=== PATIENT | female | born 1960 | race Caucasian/White ===

== ENCOUNTER 2018-06-21 22:41 | Inpatient (IN) ==
[2018-06-21] MEDS ORDERED: XYLOCAINE 2%/EPI 1:200,000 INJ ONE (23:27)
[2018-06-21] MEDS ORDERED: MARCAINE 0.5% INJ ONE (23:27)
[2018-06-21] MEDS ORDERED: BENADRYL IM ONE (23:33)
[2018-06-21] MEDS ORDERED: COMPAZINE IM ONE (23:33)
[2018-06-21] MEDS ORDERED: MARCAINE 0.5% PF INJ ONE (23:45)
[2018-06-22] MEDS ORDERED: LIDODERM TOP ONE (00:39)
[2018-06-22] MEDS ORDERED: LASIX PO ONE (00:46)
[2018-06-22] MEDS ORDERED: PRINIVIL PO ONE (00:47)
[2018-06-22 01:05] LABS: ALLEN TEST YES; BE 4.1 mmoll (-3.0-3.0); BLOOD TYPE ARTERIAL; METHB 0.7 % (0.0-1.5); O2(CT) 13.4 mL/dL (15.0-23.0); O2HB 91.2 % (95.0-99.0); PCO2(98.6) 33 mmHg (35-45); PO2(98.6) 57 mmHg (60-100); SAMPLE BLOOD; SAO2 94.1 % (95.0-100.0); THB 10.4 g/dL (11.5-17.4); pH(98.6) 7.52 (7.35-7.45)
[2018-06-22 01:06] LABS: MODALITY ROOM AIR
[2018-06-22 02:28] LABS: BASO# 0.01 X1000 (0.0-0.2); BASO% 0.1 % (0.0-0.8); EOS# 0.02 X1000 (0.0-0.7); EOS% 0.3 % (0.0-10.0); HEMATOCRIT 35.3 % (37.0-47.0); HEMOGLOBIN 10.2 g/dL (12.0-16.0); IMM GRAN# 0.02 X1000 (0.0-0.04); IMM GRAN% 0.3 % (0.0-0.5); LYMPH# 1.04 X1000 (1.2-3.4); LYMPH% 13.2 % (20.5-51.1); MCH 23.1 PG (27-31); MCHC 28.9 g/dL (33-37); MCV 79.9 FL (81-99); MONO# 0.42 X1000 (0.11-0.59); MONO% 5.3 % (1.7-9.3); NEUT# 6.35 X1000 (1.4-6.5); NEUT% 80.8 % (42.2-75.2); PLT 334 X1000 (130-400); RBC 4.42 XMIL (4.2-5.4); RDW 21.5 % (11.5-14.5); WBC 7.86 X1000 (4.8-10.8)
[2018-06-22 02:36] LABS: ALB/GLOB RATIO 0.9; ALBUMIN 3.8 g/dL (3.5-5.0); CALCIUM 9.1 mg/dL (8.8-10.2); CREATININE 1.5 mg/dL (0.5-0.9); TOTAL BILIRUBIN 1.31 mg/dL (0.20-1.00); TOTAL PROTEIN 7.8 g/dL (6.3-8.3)
[2018-06-22] MEDS ORDERED: LASIX IV ONE (03:36)
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
[2018-06-22] MEDS ORDERED: DIAMOX IV ONE ×2 (03:52→16:00)
[2018-06-22] MEDS ORDERED: LANOXIN IV ONE (04:03)
[2018-06-22] MEDS ORDERED: LANOXIN ONE (04:06)
[2018-06-22] MEDS ORDERED: COREG PO ONE (04:11)
[2018-06-22] MEDS ORDERED: POTASSIUM CHLORIDE 20% LIQUID PO ONE (04:28)
[2018-06-22] MEDS ORDERED: PHENERGAN PO PRN (05:27)
[2018-06-22] MEDS ORDERED: NORCO-10 PO PRN ×2 (05:27→20:48)
[2018-06-22] MEDS ORDERED: ZOFRAN IV PRN (05:27)
[2018-06-22] MEDS ORDERED: TYLENOL PO PRN (05:27)
[2018-06-22 06:20] LABS: IRON SATURATION 8 %; TIBC 461 ug/dL; TOTAL IRON 37 ug/dL (49-151); UNBOUND IRON 424 ug/dL (112-346)
[2018-06-22] MEDS: NITROGLYCERIN TOP SCH ×4 (06:30→23:20)
--- NOTE | 2018-06-22 07:28 | Diag Imaging Result Doc PS360 ---
EXAM: CHEST-2 VIEWS 06/22/2018 HISTORY: chf TECHNIQUE: AP portable sitting upright at 0143 COMMENT: There is cardiomegaly. There is diffuse alveolar and interstitial edema. This is worse than on 02/03/2016. IMPRESSION: Pulmonary edema and cardiomegaly. Electronically signed by Sebastien Elizondo 06/22/2018 7:26 AM
--- NOTE | 2018-06-22 07:51 | Diag Imaging Result Doc PS360 ---
EXAM: CT HEAD W/O CONTRAST 06/22/2018 HISTORY: r/o bleed TECHNIQUE: This exam was performed using automated exposure control, adjustment of mA or kV according to patient size, and/or use of iterative reconstruction technique. COMMENT: There are no previous studies available for comparison. There are postsurgical changes with encephalomalacia in the right temporal tip and adjacent insula, and craniotomy defect in the squamous temporal bone. There is also been craniotomy in the frontal and parietal bones adjacent. There is also encephalomalacia in the occipital lobe on the left. There is mild lucency in the area of the genu of the internal capsule on the right. There is no evidence of mass effect, bleed, or abnormal extra-axial fluid collection. There is soft tissue swelling/hematoma in the right frontal scalp. There is a mucous retention cyst in the left maxillary sinus. There are no air-fluid levels. There is some mucosal thickening in the right frontal sinus. IMPRESSION: No evidence of acute intracranial disease. Calvarial and encephalomalacic changes due to previous surgery and chronic ischemic changes. Electronically signed by Sebastien Elizondo 06/22/2018 7:49 AM
[2018-06-22] MEDS ORDERED: NEURONTIN PO SCH (09:00)
[2018-06-22] MEDS: BASAGLAR SUBQ SCH (09:00)
[2018-06-22] MEDS: DUONEB (A & A) INH SCH ×3 (10:00→19:02)
[2018-06-22] MEDS: CORDARONE PO SCH ×2 (10:30→22:54)
[2018-06-22] MEDS: ICAR-C PO SCH (10:30)
[2018-06-22] MEDS: LAMICTAL PO SCH ×2 (10:30→20:29)
[2018-06-22] MEDS: PLAVIX PO SCH (10:30)
[2018-06-22] MEDS: ELIQUIS PO SCH ×2 (10:30→20:29)
[2018-06-22] MEDS: PRINIVIL PO SCH ×2 (10:30→20:30)
[2018-06-22] MEDS: ALDACTONE PO SCH (10:30)
[2018-06-22] MEDS: LASIX IV SCH ×2 (10:30→23:29)
[2018-06-22] MEDS: COREG PO SCH ×2 (10:30→20:29)
[2018-06-22] MEDS: PROZAC PO SCH (10:30)
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
[2018-06-22] MEDS: D5 1/2 NS 1,000 ML IV SCH (12:55)
[2018-06-22 13:22] LABS: UR AMPHETAMINES QUAL PRESUMPTIVE POSITIVE (NONE DETECT); UR BARBITUATES QUAL NONE DETECTED (NONE DETECT); UR BENZODIAZEPIN QUAL NONE DETECTED (NONE DETECT); UR CANNABINOIDS QUAL NONE DETECTED (NONE DETECT); UR COCAINE QUAL NONE DETECTED (NONE DETECT); UR METHADONE QUAL NONE DETECTED (NONE DETECT); UR OPIATES QUAL NONE DETECTED (NONE DETECT); UR OXYCODONE QUAL NONE DETECTED (NONE DETECT); UR PCP QUAL NONE DETECTED (NONE DETECT)
[2018-06-22] MEDS ORDERED: CALMOSEPTINE OINTMENT TOP PRN (15:52)
[2018-06-22 16:35] LABS: CALCIUM 8.6 mg/dL (8.8-10.2); CREATININE 1.2 mg/dL (0.5-0.9); POTASSIUM 3.1 mmol/L (3.5-5.1)
--- NOTE | 2018-06-22 18:46 | ECHO REPORT ---
ORDER DATE: 06/22/2018 MEASUREMENTS: Left ventricular end-diastolic diameter 5.7, septal thickness 1.2, posterior wall thickness 0.9, aortic root 3.0, left atrium 4.3. SUMMARY: 1. Fair quality study. Intravenous echo contrast agent Definity was utilized to enhance endocardial definition. 2. Aortic valve is trileaflet and opens normally on 2-dimensional images. Peak gradient across aortic valve by Doppler is 14 mmHg. Mild mitral annular calcification is demonstrated. There is mild mitral regurgitation. Tricuspid and pulmonic valves are without evidence of structural abnormality with moderate tricuspid regurgitation and mild pulmonic insufficiency. The estimated systolic PA pressure by Doppler is 70 to 75 mmHg suggesting moderate to severe pulmonary hypertension. The aortic root is normal in size. 3. [*] left ventricular enlargement with normal wall thickness suggested. Estimated left ventricular ejection fraction approximately 25% in the setting of global hypokinesis and severe hypokinesis of the basal to mid inferior wall. Left atrium is mildly enlarged. Right atrium, right ventricle are normal in size with grossly preserved right ventricular systolic function. 4. No pericardial effusion. 5. Appearance of inferior vena cava suggests elevated central venous pressure. cc: MD Perry Cavazos MD
[2018-06-22] MEDS: NEURONTIN PO SCH (20:29)
[2018-06-22] MEDS: LIPITOR PO SCH (20:29)
[2018-06-22] MEDS ORDERED: MORPHINE IV ONE (20:46)
[2018-06-22] MEDS: MYCOSTATIN POWDER TOP SCH (22:48)
[2018-06-23] MEDS: DUONEB (A & A) INH SCH ×5 (03:08→19:04)
[2018-06-23] MEDS: D5 1/2 NS 1,000 ML IV SCH ×2 (05:03→19:44)
[2018-06-23] MEDS: NITROGLYCERIN TOP SCH ×3 (05:26→17:54)
[2018-06-23 05:40] LABS: BASO# 0.02 X1000 (0.0-0.2); BASO% 0.2 % (0.0-0.8); EOS# 0.12 X1000 (0.0-0.7); EOS% 1.1 % (0.0-10.0); HEMATOCRIT 33.7 % (37.0-47.0); HEMOGLOBIN 9.9 g/dL (12.0-16.0); IMM GRAN# 0.03 X1000 (0.0-0.04); IMM GRAN% 0.3 % (0.0-0.5); LYMPH# 1.64 X1000 (1.2-3.4); LYMPH% 15.5 % (20.5-51.1); MCH 23.6 PG (27-31); MCHC 29.4 g/dL (33-37); MCV 80.4 FL (81-99); MONO% 9.5 % (1.7-9.3); NEUT# 7.74 X1000 (1.4-6.5); NEUT% 73.4 % (42.2-75.2); PLT 299 X1000 (130-400); RBC 4.19 XMIL (4.2-5.4); RDW 21.1 % (11.5-14.5); WBC 10.55 X1000 (4.8-10.8)
[2018-06-23 05:51] LABS: ALB/GLOB RATIO 0.9; ALBUMIN 3.3 g/dL (3.5-5.0); CALCIUM 8.2 mg/dL (8.8-10.2); CREATININE 1.3 mg/dL (0.5-0.9); DIGOXIN 0.4 ng/mL (0.9-2.0); MAGNESIUM 2.1 mg/dL (1.5-2.7); POTASSIUM 3.2 mmol/L (3.5-5.1); TOTAL BILIRUBIN 1.74 mg/dL (0.20-1.00); TOTAL PROTEIN 7.1 g/dL (6.3-8.3)
[2018-06-23 06:11] LABS: FREE T4 1.53 ng/dL (0.93-1.70); TSH 4.17 uIUmL (0.27-4.20)
[2018-06-23 07:48] LABS: C REACTIVE PROT QUANT 98.95 mg/L (0.00-5.00)
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
[2018-06-23] MEDS: NEURONTIN PO SCH ×2 (09:37→20:24)
[2018-06-23] MEDS: PROZAC PO SCH (09:37)
[2018-06-23] MEDS: ICAR-C PO SCH (09:37)
[2018-06-23] MEDS: ALDACTONE PO SCH (09:37)
[2018-06-23] MEDS: LAMICTAL PO SCH ×2 (09:37→20:24)
[2018-06-23] MEDS: ELIQUIS PO SCH ×2 (09:38→20:23)
[2018-06-23] MEDS: CORDARONE PO SCH (09:38)
[2018-06-23] MEDS: COREG PO SCH ×2 (09:38→20:26)
[2018-06-23] MEDS: PLAVIX PO SCH (09:38)
[2018-06-23] MEDS: PRINIVIL PO SCH ×2 (09:38→21:36)
--- NOTE | 2018-06-23 10:03 | Diag Imaging Result Doc PS360 ---
EXAM: CHEST-PORTABLE 06/23/2018 HISTORY: pulmonary edema TECHNIQUE: AP portable at 0811 COMMENT: There is cardiomegaly. There is interstitial and mild alveolar pulmonary edema. Compared to 06/22/2018 there may be slight improvement. IMPRESSION: Cardiomegaly and pulmonary edema. Electronically signed by Sebastien Elizondo 06/23/2018 10:01 AM
[2018-06-23] MEDS: LASIX IV SCH (11:10)
[2018-06-23] MEDS ORDERED: NORCO-7.5 PO PRN (11:16)
[2018-06-23] MEDS: BASAGLAR SUBQ SCH (12:51)
--- NOTE | 2018-06-23 13:38 | CONSULTATION ---
DATE OF CONSULTATION: 06/23/2018 IMPRESSIONS: 1. Acute on chronic systolic heart failure. 2. Severe ischemic cardiomyopathy. 3. Atherosclerotic coronary disease with history of previous coronary bypass grafting and multiple myocardial infarctions. Further details not available. 4. Hyperlipidemia. 5. Hypertension. 6. Mood disorder. 7. Type 2 diabetes mellitus. 8. Previous atrial fibrillation. 9. Chronic ongoing cigarette use. RECOMMENDATIONS: 1. Diurese with intravenous Lasix as you are doing. 2. Continue current cardiovascular regimen otherwise unchanged. 3. Will try and review office records when available. HISTORY: This 57-year-old white female with a past history of ischemic cardiomyopathy, previous coronary bypass surgery, multiple myocardial infarctions, hypertension, hyperlipidemia, type 2 diabetes mellitus, previous atrial fibrillation, chronic ongoing cigarette use, and mood disorder was brought from halfway facility with altered mental status. She is fairly drowsy due to her medications and does not give a lot a coherent history. She apparently became agitated at halfway facility and was referred for evaluation of altered mental status. She has had some shortness of breath as well. She was reported to be hypoxemic when EMS arrived and she was placed on oxygen. There has been no chest pain. She has been followed by Dr. Shea of Cardiology in [place], [place]. She also relates recent hospitalizations over the past year in [place]. She mentions that she may be considered for a defibrillator/pacemaker. PAST MEDICAL HISTORY: 1. Chronic systolic heart failure. 2. Ischemic cardiomyopathy, severe. 3. Atherosclerotic coronary disease with history of previous coronary bypass surgery and multiple myocardial infarctions. 4. Hypertension. 5. Hyperlipidemia. 6. Type 2 diabetes mellitus. 7. Previous atrial fibrillation. 8. Mood disorder. PAST SURGICAL HISTORY: Also includes unspecified neuro surgery, foot surgery, and shoulder surgery. ALLERGIES: She is allergic to or intolerant to Toradol and diphenhydramine. MEDICATIONS PRIOR TO ADMISSION: As listed. SOCIAL HISTORY: She continues to smoke about half pack cigarettes per day, as best I can ascertain. She does not use alcohol. FAMILY HISTORY: Positive for coronary disease. REVIEW OF SYSTEMS: Pulmonary: Noteworthy for dyspnea and orthopnea, but otherwise negative. Constitutional: Noncontributory. Remainder of review of systems negative/noncontributory with 14 total systems reviewed. PHYSICAL EXAMINATION: General: Reveals an older, middle-aged white female in no distress, who actually appears older than stated age. She is somewhat drowsy and tangential in response to questions. Vital Signs: Blood pressure 122/61, heart rate 69, oxygen saturation 98% on nasal cannula oxygen at 4 L/minute. HEENT: Extraocular movements intact. Mucous membranes are moist. Neck: Supple without discernible jugular venous distention. No carotid bruits. Chest: Auscultation of the chest reveals bibasilar inspiratory crackles. Cardiac: Reveals a regular rate and rhythm without appreciable murmur or gallop. Abdomen: Soft, nontender. Extremities: Warm and without edema. DIAGNOSTIC DATA: Twelve lead EKG is not yet scanned into the record. Echocardiography is reviewed and demonstrates left ventricular enlargement with estimated left ventricular ejection fraction of 25% in the setting of global hypokinesis with severe hypokinesis of the basal to mid inferior wall. Mild mitral regurgitation demonstrated. Moderate tricuspid regurgitation demonstrated with moderate to severe pulmonary hypertension by Doppler. Appearance of inferior vena cava suggests elevated central venous pressure. LABORATORY DATA: Includes a white blood cell count of 10.55, hematocrit 33.7, hemoglobin 9.9, platelet count 299,000. Sodium 138, potassium 3.2, chloride 97, carbon dioxide 31, BUN 26, creatinine 1.3, glucose 114, magnesium 2.1. Troponin T 0.020. Pro B-natriuretic peptide level 27,364. Albumin 3.3. cc: Sang Greenwood MD
[2018-06-23] MEDS: NORCO-7.5 PO PRN (19:43)
[2018-06-23] MEDS: LIPITOR PO SCH (20:24)
[2018-06-23] MEDS: MYCOSTATIN POWDER TOP SCH (21:37)
[2018-06-24] MEDS: LASIX IV SCH ×3 (00:51→22:05)
[2018-06-24] MEDS: NITROGLYCERIN TOP SCH ×2 (00:51→06:25)
[2018-06-24] MEDS: DUONEB (A & A) INH SCH ×6 (02:43→22:00)
[2018-06-24] MEDS: NORCO-7.5 PO PRN ×2 (04:57→13:27)
[2018-06-24 05:46] LABS: CALCIUM 8.4 mg/dL (8.8-10.2); CREATININE 1.4 mg/dL (0.5-0.9); MAGNESIUM 2.1 mg/dL (1.5-2.7); POTASSIUM 3.1 mmol/L (3.5-5.1)
--- NOTE | 2018-06-24 08:08 | EKG Report ---
Test Performed on : 06/23/2018 2:16:15 PM Test Reason : CHF Blood Pressure : / mmHG Vent. Rate : 053 BPM Atrial Rate : 053 BPM P-R Int : 000 ms QRS Dur : 120 ms QT Int : 574 ms P-R-T Axes : 000 005 129 degrees QTc Int : 538 ms Atrial fibrillation. Prolonged QT Marked ST abnormality, possible lateral subendocardial injury Abnormal ECG When compared with ECG of 13-JUL-2016 17:14, Atrial fibrillation. has replaced Sinus rhythm. Confirmed by Shawn PETTIT, Lionel Varghese ([id number]) on 06/24/2018 10:02:39 PM
--- NOTE | 2018-06-24 08:59 | PROGRESS NOTE ---
DATE: 06/24/2018 SUBJECTIVE: She is a little sleepy this morning, but she is awake and she denies any pain. She has a Monteiro catheter in. She is breathing comfortably. OBJECTIVE: Vital signs: Temperature 97.9 degrees, pulse 59, respirations 19. Eyes: Pupils are equal. Neck: No distended neck veins. Lungs: Clear in all lung davis. Cardiovascular: Regular rhythm and rate without murmur or S3. Abdomen: Soft. Skin: Warm and dry. URINE OUTPUT: 3300 mL. LABORATORY: Blood sugar 114, 147, 149. Dr. Greenwood has seen her and feels she has acute on chronic systolic heart failure, severe ischemic cardiomyopathy, atherosclerotic coronary artery disease, history of previous coronary bypass grafting, multiple myocardial infarctions, hyperlipidemia, hypertension, mood disorder, diabetes mellitus type 2, previous atrial fibrillation and ongoing cigarette use. ASSESSMENT AND PLAN: 1. Breathing appears comfortable. I am going to see if we can get her out of bed. We will discontinue her Monteiro catheter. She is still pretty lethargic, but better. 2. Metabolic encephalopathy. I think it is probably combination of factors, including medication. We will continue to watch the medicine and adjust. 3. Hypertension. Blood pressure appears under good control. 4. History of mood disorder. 5. Diabetes mellitus. Blood sugars appear to be well controlled. So, the plan is to try and get her up out of bed. Get physical therapy. I did decrease her amiodarone to 200 mg a day. She is on Eliquis 5 mg a day, Lipitor 40 mg at bedtime, Coreg 12.5 b.i.d., Plavix 75 mg a day, Prozac 40 mg a day, Neurontin, I think I reduced it to 200 mg b.i.d., hydrocodone 7.5 q.8 hours p.r.n., she is getting insulin glargine 25 units subcutaneous daily, iron carbinol, ascorbic acid 1 a day, Lamictal 100 mg b.i.d., Prinivil 20 mg b.i.d., Spironolactone 25 mg a day. She is using nystatin powder as well. She has nitroglycerin 1 inch q.6 hours. We will try physical therapy and discontinue her Monteiro catheter. See if we can stop the nitroglycerin paste. cc: Douglas Gonzalez MD
[2018-06-24] MEDS: PROZAC PO SCH (09:33)
[2018-06-24] MEDS: LAMICTAL PO SCH ×2 (09:33→20:50)
[2018-06-24] MEDS: ALDACTONE PO SCH (09:33)
[2018-06-24] MEDS: COREG PO SCH ×2 (09:33→20:50)
[2018-06-24] MEDS: BASAGLAR SUBQ SCH (09:33)
[2018-06-24] MEDS: ELIQUIS PO SCH ×2 (09:33→20:49)
[2018-06-24] MEDS: PRINIVIL PO SCH ×2 (09:33→11:56)
[2018-06-24] MEDS: PLAVIX PO SCH (09:33)
[2018-06-24] MEDS: CORDARONE PO SCH (09:33)
[2018-06-24] MEDS: ICAR-C PO SCH (09:33)
[2018-06-24] MEDS: NEURONTIN PO SCH ×2 (09:33→20:49)
[2018-06-24] MEDS ORDERED: INSULIN PEN NEEDLES ONE (09:36)
[2018-06-24] MEDS: D5 1/2 NS 1,000 ML IV SCH (10:52)
[2018-06-24] MEDS ORDERED: KLOR-CON PO ONE (15:31)
--- NOTE | 2018-06-24 15:48 | PROGRESS NOTE ---
DATE: 06/24/2018 SUBJECTIVE: The patient reports breathing more comfortably. She denies orthopnea or chest pain. She continues without dyspnea on supplemental oxygen per nasal cannula. OBJECTIVE: Vital Signs: Blood pressure 101/54, heart rate 61, oxygen saturation 100% on nasal cannula oxygen. Neck: Jugular venous distention cannot be appreciated. Chest: Auscultation of the chest reveals very few inspiratory crackles in the bases bilaterally. Cardiac: Exam reveals a regular rate and rhythm without appreciable murmur or gallop. Extremities: There is no evidence of peripheral edema. LABORATORY DATA: Sodium 141, potassium 3.1, chloride 99, carbon dioxide 30, BUN 28, creatinine 1.4, glucose 126. IMPRESSION: 1. Acute on chronic systolic heart failure, improving with diuresis. 2. Severe ischemic cardiomyopathy. 3. Atherosclerotic coronary disease with history of previous coronary bypass grafting and previous myocardial infarctions. 4. Hyperlipidemia. 5. Hypertension. 6. Mood disorder. 7. Type 2 diabetes mellitus. 8. Chronic ongoing cigarette use. RECOMMENDATIONS: 1. Continue diuresis. Anticipate switching to oral Lasix tomorrow. 2. Switch from lisinopril to losartan. Consideration should be given to future use of Entresto. 3. Smoking cessation advised. 4. Supplement potassium. cc: Sang Greenwood MD
[2018-06-24] MEDS: COZAAR PO SCH (20:50)
[2018-06-24] MEDS: LIPITOR PO SCH (20:50)
[2018-06-24] MEDS: MYCOSTATIN POWDER TOP SCH (20:50)
[2018-06-24] MEDS: NORCO-5 PO PRN (20:59)
[2018-06-25] MEDS: D5 1/2 NS 1,000 ML IV SCH ×2 (01:58→16:09)
[2018-06-25] MEDS: DUONEB (A & A) INH SCH ×4 (03:00→22:15)
[2018-06-25] MEDS: NORCO-5 PO PRN ×2 (05:47→15:52)
[2018-06-25] MEDS: PROZAC PO SCH (08:42)
[2018-06-25] MEDS: PLAVIX PO SCH (08:42)
[2018-06-25] MEDS: CORDARONE PO SCH (08:42)
[2018-06-25] MEDS: BASAGLAR SUBQ SCH (08:43)
[2018-06-25] MEDS: COZAAR PO SCH ×2 (08:43→21:13)
[2018-06-25] MEDS: ICAR-C PO SCH (08:43)
[2018-06-25] MEDS: ELIQUIS PO SCH ×2 (08:43→21:13)
[2018-06-25] MEDS: ALDACTONE PO SCH (08:43)
[2018-06-25] MEDS: COREG PO SCH ×2 (08:43→21:13)
[2018-06-25] MEDS: NEURONTIN PO SCH ×2 (08:43→21:13)
[2018-06-25] MEDS: LAMICTAL PO SCH ×2 (08:43→21:13)
[2018-06-25] MEDS ORDERED: LASIX PO SCH (09:00)
--- NOTE | 2018-06-25 14:17 | PROGRESS NOTE ---
DATE: 06/25/2018 This morning Ms. Bernabe referred to be feeling a lot better, no new complaints. OBJECTIVE: Vitals: Blood pressure is 101/54, pulse is 73, respiration is 17, temperature 98.5 degrees. General: Ms. Bernabe 57-year-old female she is in bed no distress. Mucosa is pink and moist. Anicteric. Acyanotic. Neck: Supple. Chest: Good air entry bilateral, there was bibasilar crepitation more so to the posterior left more than the right. Cardiovascular: Regular rate and rhythm. No murmurs, no rubs, no gallops. Abdomen: Soft, nontender. Extremities: No pedal edema, distal pulses present. PILOT: Patient was awake, alert, oriented. There is no focal neurological deficit. Patient I's and O's urine output was 900. Patient has a total negative balance of 6685. Current weight is 185 admitting was 206. This is about 21 pounds weight loss during this index hospitalization. CURRENT MEDICATIONS: Have also been reviewed she is on Lasix 40 b.i.d., amiodarone 200 daily, Eliquis 5 b.i.d., atorvastatin 40 mg at bedtime, fluoxetine, gabapentin, insulin glargine and sliding scale. ASSESSMENT: 1. Acute on chronic congestive heart failure with ejection fraction of 25%. 2. Severe ischemic cardiomyopathy, patient is status post coronary artery bypass graft. 3. Hypertension controlled. 4. Diabetes mellitus type 2. 5. Ongoing tobacco abuse. 6. Acute kidney injury, creatinine steadily improving. cc: Zhou Garcia MD MTDDaphney
[2018-06-25] MEDS ORDERED: LASIX IV ONE (15:01)
--- NOTE | 2018-06-25 15:28 | PROGRESS NOTE ---
DATE: 06/25/2018 SUBJECTIVE: The patient reports some shortness of breath lying in bed. There has been no chest pain. OBJECTIVE: Vital Signs: Blood pressure 101/54, heart rate 73. Oxygen saturation ranges from 95 to 98 percent on varying levels of oxygen support by nasal cannula. Neck: Jugular venous distention cannot be appreciated. Chest: Auscultation of the chest reveals scant inspiratory crackles in the bases bilaterally. Cardiac Exam: Reveals a regular rate and rhythm with occasional extrasystole, without murmur or gallop. Extremities: Without edema. LABORATORY DATA: Includes a point of care glucose of 175 today. IMPRESSION: 1. Acute on chronic systolic heart failure. 2. Severe ischemic cardiomyopathy. 3. Atherosclerotic coronary disease and previous coronary artery bypass grafting as well as previous myocardial infarctions. 4. Hyperlipidemia. 5. Hypertension. 6. Mood disorder. 7. Type 2 diabetes mellitus. 8. Chronic ongoing cigarette use. RECOMMENDATIONS: Augment diuresis transiently with intravenous Lasix and then transition back to oral Lasix tomorrow. cc: Sang Greenwood MD
[2018-06-25] MEDS: LIPITOR PO SCH (21:13)
[2018-06-25] MEDS: MYCOSTATIN POWDER TOP SCH (21:17)
[2018-06-26] MEDS: NORCO-5 PO PRN ×3 (00:16→16:52)
[2018-06-26] MEDS: DUONEB (A & A) INH SCH ×4 (03:04→21:47)
[2018-06-26 05:20] LABS: BASO# 0.04 X1000 (0.0-0.2); BASO% 0.6 % (0.0-0.8); EOS# 0.33 X1000 (0.0-0.7); EOS% 5.3 % (0.0-10.0); HEMATOCRIT 36.8 % (37.0-47.0); HEMOGLOBIN 10.8 g/dL (12.0-16.0); MCH 23.4 PG (27-31); MCHC 29.3 g/dL (33-37); MCV 79.8 FL (81-99); MONO# 0.68 X1000 (0.11-0.59); MPV 9.2 FL (7.4-10.4); NEUT# 2.54 X1000 (1.4-6.5); NEUT% 41.1 % (42.2-75.2); PLT 392 X1000 (130-400); RBC 4.61 XMIL (4.2-5.4); RDW 20.9 % (11.5-14.5); WBC 6.19 X1000 (4.8-10.8)
[2018-06-26] MEDS ORDERED: VENOFER 200 MG in NS 150 ML IV ONE (06:30)
[2018-06-26 06:57] LABS: AGAP 11; ALBUMIN 3.4 g/dL (3.5-5.0); BUN 19 mg/dL (8-22); CHLORIDE 102 mmol/L (98-107); COSMO 284; CREATININE 0.9 mg/dL (0.5-0.9); ESTIMATED GFR > 60; GLUCOSE 101 mg/dL (70-104); PHOSPHORUS 3.6 mg/dL (2.7-4.5); POTASSIUM 3.9 mmol/L (3.5-5.1); SODIUM 141 mmol/L (136-145); TCO2 28 mmol/L (25-35)
[2018-06-26] MEDS: NEURONTIN PO SCH ×2 (08:43→20:37)
[2018-06-26] MEDS: PROZAC PO SCH (08:43)
[2018-06-26] MEDS: PLAVIX PO SCH (08:43)
[2018-06-26] MEDS: ALDACTONE PO SCH (08:43)
[2018-06-26] MEDS: ICAR-C PO SCH (08:44)
[2018-06-26] MEDS: CORDARONE PO SCH (08:44)
[2018-06-26] MEDS: ELIQUIS PO SCH ×2 (08:44→20:37)
[2018-06-26] MEDS: LASIX PO SCH ×2 (08:44→20:37)
[2018-06-26] MEDS: COREG PO SCH ×2 (08:44→20:37)
[2018-06-26] MEDS: COZAAR PO SCH ×2 (08:44→20:37)
[2018-06-26] MEDS: LAMICTAL PO SCH ×2 (08:44→20:37)
[2018-06-26] MEDS: BASAGLAR SUBQ SCH (08:46)
--- NOTE | 2018-06-26 11:51 | DISCHARGE SUMMARY ---
ADMISSION DATE: 06/22/2018 DISCHARGE DATE: DISPOSITION: [facility]. FOLLOW-UP: 1. Sang Greenwood MD 2. Dr. Rui Cornell INVASIVE PROCEDURES DONE DURING THIS ADMISSION: None. IMAGING STUDIES OF SIGNIFICANCE: 1. A chest x-ray was done which showed pulmonary edema and cardiomegaly. 2. Head CT scan showed no evidence of acute intracranial abnormality. 3. A repeat chest x-ray continued to show cardiomegaly. 4. An echocardiogram did show an ejection fraction of 25% in the setting of global hypokinesis and severe hypokinesis of the basal to mid inferior wall. ADMISSION DIAGNOSES: 1. Acute congestive heart failure. 2. Hypertensive heart disease. 3. Coronary artery disease. 4. Iron deficiency. 5. Probable atrial fibrillation with rapid ventricular response. DIAGNOSES AT THE TIME OF DISCHARGE: 1. Acute on chronic congestive heart failure with ejection fraction of 25%. Severe ischemic cardiomyopathy, status post coronary artery bypass graft. 1. Essential hypertension. 2. Diabetes mellitus type 2. 3. Ongoing tobacco abuse. 4. Acute kidney injury, resolved. 5. Atrial fibrillation, currently rate controlled. 6. Dyslipidemia. 7. Iron deficiency anemia. Patient is status post iron infusion and is currently on iron pills. 8. Diabetic peripheral neuropathy. Patient is on gabapentin. DISCHARGE MEDICATIONS: 1. Amiodarone 400, 3 times per day. 2. Lamotrigine 100 mg b.i.d. 3. Eliquis 5 mg b.i.d. 4. Atorvastatin 40 mg at bedtime. 5. Carvedilol 12.5 b.i.d. 6. Clopidogrel 75 mg daily. 7. Fluoxetine 40 mg daily. 8. Furosemide 40 mg b.i.d. 9. Gabapentin 400 b.i.d. 10. Insulin aspart 10 units 3 times per day with meals. 11. Glargine 25 units daily. 12. Isosorbide mononitrate 80 mg daily. 13. Spironolactone 12.5 daily. 14. Losartan 25 mg b.i.d. PRESENTING COMPLAINT: Shortness of breath and some confusion. HISTORY OF PRESENTING COMPLAINT: Ms. Bernabe is a 57-year-old female who is known to have congestive heart failure, atrial fibrillation. The patient was recently discharged from [facility] because of vascular surgery and was sent to rehab; however, in [place], she started having shortness of breath and congestive symptoms, was brought into the emergency department where she was found to have an oxygen saturation of 94%. Extremities had about 1+ pedal edema and had diffuse crackles in the lung davis. A chest x-ray was consistent with congestive heart failure. Patient was admitted to [facility] for further medical care. HOSPITAL COURSE: The patient did pretty well during the hospital course. She was adequately diuresed and Cardiology was consulted. Patient was seen and followed up by Dr. Greenwood. On daily basis, patient continued to achieve negative balance. This morning her total negative balance is 6359, and her weight has improved from 206 on admission to 183 this morning. Ms. Bernabe referred to be feeling a lot better. Shortness of breath has improved. She does not have any more congestive symptoms. Her diuretics were changed from IV to p.o. yesterday. During the hospital course, she also did have some evidence of renal impairment with admitting creatinine up to 1.5. This was gradually improved. This morning it is normalized to 0.9. DISCHARGE INSTRUCTIONS: Ms. Bernabe is now clinically stable to be discharged back to her rehab. She is going to follow up with Cardiology in about 2 weeks with a repeat BMP and all her home medications have been reviewed and reconciled. TIME SPENT FOR DISCHARGE: 36 minutes. cc: MD Rui Markham MD William D. Denney, MD
[2018-06-26] MEDS: LIPITOR PO SCH (20:37)
[2018-06-26] MEDS: MYCOSTATIN POWDER TOP SCH (20:38)
[2018-06-27] MEDS: NORCO-5 PO PRN ×2 (00:05→08:05)
[2018-06-27] MEDS: DUONEB (A & A) INH SCH ×2 (03:15→09:16)
[2018-06-27] MEDS: BASAGLAR SUBQ SCH (08:05)
[2018-06-27] MEDS: PROZAC PO SCH (08:06)
[2018-06-27] MEDS: CORDARONE PO SCH (08:06)
[2018-06-27] MEDS: ELIQUIS PO SCH (08:06)
[2018-06-27] MEDS: ICAR-C PO SCH (08:06)
[2018-06-27] MEDS: PLAVIX PO SCH (08:06)
[2018-06-27] MEDS: LAMICTAL PO SCH (08:06)
[2018-06-27] MEDS: COZAAR PO SCH (08:06)
[2018-06-27] MEDS: NEURONTIN PO SCH (08:06)
[2018-06-27] MEDS: ALDACTONE PO SCH (08:06)
[2018-06-27] MEDS: COREG PO SCH (08:06)
[2018-06-27] MEDS: LASIX PO SCH (08:06)
--- NOTE | 2018-06-27 08:33 | EKG Report ---
Test Performed on : 06/26/2018 11:11:23 PM Test Reason : rhythm change Blood Pressure : / mmHG Vent. Rate : 044 BPM Atrial Rate : 029 BPM P-R Int : 000 ms QRS Dur : 136 ms QT Int : 752 ms P-R-T Axes : 000 001 117 degrees QTc Int : 642 ms Junctional bradycardia. with retrograde conduction. Nonspecific intraventricular block Possible Inferior infarct , age undetermined T wave abnormality, consider lateral ischemia Abnormal ECG When compared with ECG of 23-JUN-2018 14:16, Wide QRS rhythm. has replaced Atrial fibrillation. Confirmed by Shawn PETTIT, Lionel Varghese ([id number]) on 06/27/2018 7:29:06 PM
[2018-06-27 11:50] VITALS: BP 99/52
== END 2018-06-27 13:55 | DRG 292 ==
LOC: ED 22:41 → EDIPHOLD 06-22 04:29 → SUATTDRO 06-22 04:29 → ICU 06-22 06:45 → EDIPHOLD 06-22 06:47 → 3S 06-22 14:53
PROVIDERS: ATTEND Internal Medicine
CPT/HCPCS: 51702; 70450; 71010; 71020; 71045; 71046; 80048; 80053; 80069; 80101; 80162; 80301; 80307; 80324; 80345; 80346; 80353; 80358; 80361; 80365; 82140; 82550; 82607; 82728; 82746; 82805; 82948; 83036; 83540; 83550; 83735; 83880; 83992; 84439; 84443; 84484; 85025; 85379; 86140; 93005; 93010; 93306; 94640; 94761; 96365; 96366; 96372; 96375; 96376; 97162; 97530; 99285; A9270; C8929; G0431; G0434; G0479; G0480; J0780; J1120; J1160; J1200; J1756; J1940; J2270; Q9957; S0020; XXXXX